=== PATIENT | female | born 1990 | race Two or more races ===

== ENCOUNTER 2024-12-26 14:46 | Emergency (ER) | payer SELFPAY ==
[~2024-12-26] VITALS: Ht 160 cm; Wt 64.4 kg
--- NOTE | 2024-12-26 15:07 | ED.PDOC ---
General HPI Comments 34 year old female presents to the ED with a chief complaint of suprapubic pain onset yesterday. Patient is currently 11 weeks , LMP 10/13/24. Began experiencing suprapubic pain last night, as well as pink vaginal discharge. Rates pain 12/07. Denies PMHx as well as dizziness, nausea, vomiting, diarrhea, headache, chest pain, shortness of breath, dysuria, fevers. No other symptoms or modifying factors present at this time. Chief Complaint: Abdominal Pain Time Seen by MD: 15:00 Reviewed notes: Nurses Notes (NO ALLERGIES TO MEDICATIONS), Medications, Allergies Allergies: Coded Allergies: NO KNOWN ALLERGIES (Unverified , 12/26/24) Information Source: Patient Severity: Moderate Timing: Days Duration: Since onset Prehospital treatment: None Onset: Spontaneous Symptoms: Other (pink discharge) History of: None Location: Suprapubic associated signs and symptoms: Abdominal Pain, Other Past Medical History PAST MEDICAL HISTORY: Denies Surgical History: Denies all surgeries EXP[employer]ION [employer] HAND History: No Pertinent EXP[employer] HAND History Family History Family History: Reviewed,noncontributory to illness, No family hx of Cancer, No family hx of DM, No family hx of Heart ponce, No family hx of HTN, No family hx ofKidney ponce, No family hx of Liver ponce, No family hx of Lung ponce, No family hx of Stroke Social History Smoker: Non-Smoker Alcohol: Denies ETOH Use Drugs: Denies Drug Use Lives In: Home Constitutional: denies: chills, diaphoresis, fatigue, fever, malaise, sweats, weakness, others EENTM: denies: blurred vision, double vision, ear bleeding, ear discharge, ear drainage, ear pain, ear ringing, eye pain, eye redness, hearing loss, mouth pain, mouth swelling, nasal discharge, nose bleeding, nose congestion, nose pain, photophobia, tearing, throat pain, throat swelling, voice changes, others Respiratory: denies: cough, hemoptysis, orthopnea, SOB at rest, shortness of breath, SOB with excertion, stridor, wheezing, others Cardiovascular: denies: chest pain, dizzy spells, diaphoresis, Dyspnea on exertion, edema, irregular heart beat, left arm pain, lightheadedness, palpitations, PND, syncope, others Gastrointestinal: reports: abdominal pain; denies: abdomen distended, blood streaked bowels, constipated, diarrhea, dysphagia, difficulty swallowing, hematemesis, melena, nausea, poor appetite, poor fluid intake, rectal bleeding, rectal pain, vomiting, others Genitourinary: reports: , vagina discharge (pink); denies: abnormal vagina bleeding, burning, dyspareunia, dysuria, flank pain, frequency, hematuria, incontinence, pain, urgency, others Neurological: denies: dizziness, fainting, headache, left sided numbness, left sided weakness, numbness, paresthesia, pre-existing deficit, right sided numbness, right sided weakness, seizure, speech problems, tingling, tremors, weakness, others Musculoskeletal: denies: back pain, gout, joint pain, joint swelling, muscle pain, muscle stiffness, neck pain, others Integumetry: denies: bruises, change in color, change in hair/nails, dryness, laceration, lesions, lumps, rash, wounds, others Allergic/Immunocompromised: denies: Difficulty Healing, Frequent Infections, Hives, Itching, others Hematologic/Lymphatic: denies: anemia, blood clots, easy bleeding, easy bruising, swollen glands, others Endocrine: denies: excessive hunger, excessive sweating, excessive thirst, excessive urination, flushing, intolerance to cold, intolerance to heat, unexplained weight gain, unexplained weight loss, others Psychiatric: denies: anxiety, bipolar disorder, depression, hopeless, panic disorder, schizophrenia, sleepless, suicidal, others All Other Systems: Reviewed and Negative Physical Exam General Appearance: No Apparent Distress HEENT: Normal ENT Inspection, Pharynx Normal, TMs Normal Neck: Full Range of Motion, Non-Tender, Normal, Normal Inspection Respiratory: Chest Non-Tender, Lungs Clear, No Accessory Muscle Use, No Respiratory Distress, Normal Breath Sounds Cardiovascular: No Edema, No JVD, No Murmur, No Gallop, Normal Peripheral Pulses, Regular Rate/Rhythm Breast Exam: Deferred Gastrointestinal: No Organomegaly, Non Tender, No Pulsatile Mass, Normal Bowel Sounds, Soft Genitalia: Deferred Pelvic: Deferred Rectal: Deferred Extremities: No calf tenderness, Normal capillary refill, Normal inspection, Normal range of motion, Non-tender, No pedal edema Musculoskeletal : Apperance: Normal Neurologic: Alert, physician practice consultant II-XII nml as Tested, No Motor Deficits, Normal Affect, Normal Mood, No Sensory Deficits Cerebellar Function: Normal Reflexes: Normal Skin: Dry, Normal Color, Warm Lymphatic: No Adenopathy Was a procedure done? Was a procedure done?: No Differential Diagnosis Kidney stone (Female): Strain, Other (THREATENED ) X-Ray, Labs, Meds, VS Vital Signs Date Time Temp Pulse Resp B/P (MAP) Pulse Ox O2 Delivery O2 Flow Rate FiO2 12/26/24 14:59 99.2 75 18 107/58 (74) 97 99.2 Lab Test 12/26/24 15:05 12/26/24 14:56 Range/Units Beta HCG, Quantitative 97989.8 H 1.5-4.2 mIU/mL Urine Color Light-yellow Yellow Urine Clarity Clear Clear Urine pH 6.0 5.0-9.0 Urine Specific [place] 1.012 1.001-1.035 Urine Protein Negative Negative Urine Ketones Negative Negative Urine Blood Negative Negative /uL Urine Nitrite Negative Negative Urine Bilirubin Negative Negative Urine Urobilinogen Normal Negative mg/dL Urine Leukocyte Esterase Negative Negative /uL Urine RBC 1 0 - 4 /hpf Urine Microscopic WBC < 1 0-5 /HPF Urine Squamous Epithelial Cells Few <5 /hpf Urine Bacteria None seen None Seen /hpf Urine Glucose Normal Normal mg/dL PELVIC ULTRASOUND SHOWS: IMPRESSION: 1. IUP single live fetus 6 weeks 4 day AUA corresponding to an WAGNER of 08/17/2025 2. No heartbeat visualized at this time. 3. 1.8 x 0.4 x 1.4 cm subchorionic hemorrhage.. The patient's urine test [place] [address] At this time the patient would need to return to have a repeat ultrasound and quantitative test to confirm viability of the The patient was discharged The patient was told to undergo pelvic rest. Images Reviewed?: Images reviewed and evaluated by me Time of 1ST Reevaluation: 15:30 Reevaluation 1ST: Unchanged Patient Education/Counseling: Diagnosis, Treatment, Prognosis, Need For Follow Up Family Education/Counseling: No Family Present Departure 1 Departure Time of Disposition: 17:15 Impression: Primary Impression: Threatened Disposition: 01 HOME / SELF CARE / HOMELESS Condition: Fair Discharged With: Self Critical Care Note Critical Care Time?: No Stability Stability form required: No Heart Score Heart Score: Heart Score Response (Comments) Value History N/A 0 EKG N/A 0 Age N/A 0 Risk Factors N/A 0 Troponin N/A 0 Total 0 I personally scribed for GUILLERMO MORALES MD ([email or web address]) on 12/26/24 at 15:07. Electronically submitted by Lauren Mckinley ([email or web address]). GUILLERMO MORALES MD Dec 26, 2024 15:07
[2024-12-26 15:14] LABS: Urine Bacteria None Seen /hpf (None Seen)
[2024-12-26 15:29] LABS: Urine Blood Negative /uL (Negative); Urine Clarity Clear (Clear); Urine Color Light-Yellow (Yellow); Urine Protein, UAD Negative (Negative); Urine Specific Gravity 1.012 (1.001-1.035); Urine Squamous Epithelial Cell FEW /hpf (<5); Urine Urobilinogen Normal (Negative); Urine WBC < 1 /HPF (0-5)
--- NOTE | 2024-12-26 16:54 | DVH ---
OB ULTRASOUND <14 WEEKS: HISTORY: pain TECHNIQUE: Multiple real-time grayscale sonographic images of the pelvis with duplex Doppler color f low, spectral and M-mode analysis. TRANSDUCERS: Transabdominal FINDINGS: The uterus measures 10.3 x 7.8 x 6.3 cm. 1.8 by 0.4 x 1.4 cm subchorionic hemorrhage. The cervix not measured Right ovary measures 3.4 x 2.3 x 3.2 cm. with normal Doppler color flow. There is a 2.1 x 2.3 x 1.8 cm anechoic lesion in the right ovary consistent with a follicle. Right ovarian volume is 12.97 cc. Left ovary measures 1.9 x 0.8 x 1.7 cm with normal Doppler color flow. Left ovarian volume is 1.6 cc IUP single gestational sac and pole at 6 weeks 4 days average ultrasound age based on mean [place] n-rump length of 0.52 cm and gestational sac size of 2.15 cm heart rate NOT detected at this time. Yolk sac visible. Amniotic fluid adequate Yuliya-gestational space: 1.8 x 0.4 x 1.4 cm subchorionic hemorrhage. IMPRESSION: 1. IUP single live fetus 6 weeks 4 day AUA corresponding to an WAGNER of 08/17/2025 2. No heartbeat visualized at this time. 3. 1.8 x 0.4 x 1.4 cm subchorionic hemorrhage..
[2024-12-26 17:33] VITALS: BP 106/61; PULSE 71; RESP 17; TEMP 98.9; O2SAT 99
== END 2024-12-26 17:35 | disposition home or self-care (01) ==
LOC: ER 14:46
DX: O20.0 Threatened abortion (principal)
CPT/HCPCS: 36415; 76801; 76817; 81001; 84702